=== PATIENT | male | born 1985 | race Caucasian/White ===

== ENCOUNTER → 2023-02-01 10:33 | Outpatient (CLI) | payer BC, SELFPAY ==
--- NOTE | ~2023-02-01 | XR_ITS ---
EXAM: XR knee RT 3V DATE: 02/01/2023 11:27 HISTORY: Right knee pain . COMPARISON: None available. FINDINGS: Normal mineralization. No fracture or dislocation. No lytic or blastic lesion. Mild patell ofemoral osteophytosis. No erosion or periosteal change. Soft tissues within normal limits. IMPRESSION: Mild osteoarthritic change in the patellofemoral compartment. Reviewed, dictated and finalized at location K.
== END ==
PROVIDERS: PCP Nurse Practitioner Family; Visit Provider Nurse Practitioner Family
DX: M17.11 Unilateral primary osteoarthritis, right knee (principal)
CPT/HCPCS: 73562